=== PATIENT | male | born 1955 | race Caucasian/White ===

== ENCOUNTER 2025-04-09 11:52 | Inpatient (IN) | payer MEDICARE, MEDICAID ==
[2025-04-09] VITALS (9 sets, daily range): BP systolic 81–150; BP diastolic 54–89; PULSE 88–113; RESP 16–28; TEMP 34.2–34.4; O2SAT 0–99
[~2025-04-09] VITALS: Ht 177.8 cm; Wt 73.0 kg
[2025-04-09] MEDS: SODIUM CHLORIDE 0.9% 1,000 ML IV ONE ×2 (12:21→12:51)
[2025-04-09] MEDS ORDERED: ACETAMINOPHEN 650MG SUPP PR PRN ×2 (12:30→13:45)
[2025-04-09] MEDS ORDERED: ACETAMINOPHEN 650MG/20.3ML UDC NG PRN ×2 (12:30→13:45)
[2025-04-09] MEDS: NOREPINEPHRINE 8MG/250ML PMX 250 ML IV ONE ×3 (12:51→18:37)
[2025-04-09 13:06] LABS: BG BASE EXCESS -19.3 mmol/L (-2.0-3.0); BG CARBOXYHEMOGLOBIN 4.7 % (0.5-1.5); BG DEOXYHEMOGLOBIN 0.7 % (0.0-5.0); BG FRACTION INSPIRED OXYGEN 60; BG HCO3 ACT 17.8 mmol/L (21.0-28.0); BG METHEMOGLOBIN 0.2 % (0.5-1.5); BG OXYGEN SATURATION 99.3 % (94.0-98.0); BG OXYHEMOGLOBIN 94.4 % (94.0-98.0); BG PCO2 132.0 mmHg (35.0-48.0); BG PEEP (cmH2O) 5.0 cmH2O; BG PH 6.747 (7.350-7.450); BG PO2 329.9 mmHg (83.0-108.0); BG SAMPLE SITE RIGHT RADIAL; BG TIDAL VOLUME(mL) 400.0 mL; BG TOTAL HEMOGLOBIN 11.9 g/dL (13.5-17.5); BG VENT MODE VENT - AC; BG VENT RATE 16.0 set
[2025-04-09 13:29] LABS: HEMATOCRIT. 38.5 % (42.0-52.0); HEMOGLOBIN. 11.5 g/dL (14.0-18.0); MEAN PLATELET VOLUME 11.0 fl (7.4-10.4); PLATELET 188 x1000/uL (130-400); RED BLOOD CELL COUNT 4.12 mill/uL (4.7-6.1); RED CELL DISTRIBUTION WIDTH 17.0 % (11.6-14.6)
[2025-04-09] MEDS ORDERED: ONDANSETRON HCL 4MG/2ML INJ IV PRN (13:45)
[2025-04-09] MEDS ORDERED: ACETAMINOPHEN 325MG TABLET PO PRN (13:45)
[2025-04-09] MEDS ORDERED: HYDRALAZINE 20MG/ML VIAL IV PRN (13:45)
[2025-04-09] MEDS ORDERED: IPRATROPIUM/ALBUTEROL 0.5-3(2.5)MG/3ML NEB HHN PRN (13:45)
[2025-04-09] MEDS ORDERED: DEXTROSE 50% WATER 50ML SYRINGE IV PRN (13:45)
[2025-04-09 13:46] LABS: CREATININE 1.4 mg/dL (0.6-1.3); UREA NITROGEN BLOOD 20 mg/dL (9-23)
[2025-04-09 13:47] LABS: TROPONIN I HIGH SENSITIVITY 43 ng/L (3.0-53)
[2025-04-09 13:48] LABS: ASPARTATE AMINOTRANSFERASE 513 IU/L (<34); BILIRUBIN DIRECT < 0.1 mg/dL (<=3.0); BILIRUBIN TOTAL < 0.2 mg/dL (0.1-1.0); PROTEIN TOTAL 5.6 g/dL (6.0-8.3)
[2025-04-09] MEDS: BLOOD SUGAR DIAGNOSTIC STRIP TEST SCH (13:49)
[2025-04-09 13:57] LABS: CLARITY URINE CLEAR (CLEAR); COLOR URINE YELLOW (YELLOW); GLUCOSE URINE TRACE (NEGATIVE); KETONES URINE NEGATIVE (NEGATIVE); LEUKOCYTE ESTERASE URINE NEGATIVE (NEGATIVE); NITRITE URINE NEGATIVE (NEGATIVE); OCCULT BLOOD URINE NEGATIVE (NEGATIVE); PH URINE 5.5 (4.5-8.0); PROTEIN URINE 1+ (NEGATIVE); SPECIFIC GRAVITY URINE 1.022 (1.005-1.030); UROBILINOGEN URINE 1.0 E.U./dL (0.2-1.0)
[2025-04-09] MEDS: SODIUM CHLORIDE 0.45% 1,000 ML IV SCH (14:02)
[2025-04-09] MEDS: SODIUM ZIRCONIUM CYCLOSILICATE 10GM/PACKET PO NR (14:02)
[2025-04-09] MEDS: PANTOPRAZOLE SODIUM 40 MG/VIAL IV SCH (14:02)
[2025-04-09 14:17] LABS: RBC URINE 0-2 /hpf (0-2); WBC URINE 0-2 /hpf (0-2)
[2025-04-09 14:18] LABS: BACTERIA URINE NONE SEEN; SQUAMOUS EPITHELIAL CELL URINE FEW /lpf (RARE/1+)
[2025-04-09 14:22] LABS: *AMPHETAMINES SCREEN URINE PRESUMPTIVE POSITIVE (NEGATIVE); *BARBITURATES SCREEN URINE NEGATIVE (NEGATIVE); *BENZODIAZEPINES SCREEN URINE NEGATIVE (NEGATIVE); *COCAINE SCREEN URINE NEGATIVE (NEGATIVE); CANNABINOID URINE SCREEN NEGATIVE (NEGATIVE); ECSTASY MDMA SCREEN URINE CONF.TEST INDICATED (NEGATIVE); METHADONE URINE SCREEN NEGATIVE (NEGATIVE); OPIATES URINE SCREEN PRESUMPTIVE POSITIVE (NEGATIVE); PHENCYCLIDINE URINE SCREEN NEGATIVE (NEGATIVE)
[2025-04-09] MEDS: SODIUM CHLORIDE 0.9% 500 ML IV ONE (14:51)
[2025-04-09] MEDS: PIPERACILLIN/TAZO 3.375G/50ML 50 ML IV SCH (15:04)
[2025-04-09 15:09] LABS: HEPATITIS A AB IGM NEGATIVE (Negative)
[2025-04-09 15:10] LABS: HEPATITIS B CORE AB IGM NEGATIVE (Negative); HEPATITIS C AB NON REACTIVE (Neg) (Negative)
[2025-04-09 15:16] LABS: CREATINE KINASE MB FRACTION 6.2 ng/mL (0.5-3.6)
[2025-04-09 15:23] LABS: BG BASE EXCESS -15.1 mmol/L (-2.0-3.0); BG CARBOXYHEMOGLOBIN 4.3 % (0.5-1.5); BG DEOXYHEMOGLOBIN 12.4 % (0.0-5.0); BG FRACTION INSPIRED OXYGEN 60; BG HCO3 ACT 18.1 mmol/L (21.0-28.0); BG METHEMOGLOBIN 0.3 % (0.5-1.5); BG OXYGEN SATURATION 87.0 % (94.0-98.0); BG OXYHEMOGLOBIN 83.0 % (94.0-98.0); BG PCO2 82.5 mmHg (35.0-48.0); BG PEEP (cmH2O) 5.0 cmH2O; BG PH 6.960 (7.350-7.450); BG PO2 72.7 mmHg (83.0-108.0); BG SAMPLE SITE LEFT RADIAL; BG TIDAL VOLUME(mL) 400.0 mL; BG TOTAL HEMOGLOBIN 13.8 g/dL (13.5-17.5); BG TOTAL RESPIRATORY RATE 22 b/min; BG VENT MODE VENT - AC; BG VENT RATE 22.0 set
[2025-04-09 15:27] LABS: INR 1.3
[2025-04-09 15:41] LABS: PHOSPHORUS 10.9 mg/dL (2.5-4.9)
[2025-04-09 15:43] LABS: TROPONIN I HIGH SENSITIVITY 326 ng/L (3.0-53)
[2025-04-09] MEDS ORDERED: TRANEXAMIC ACID 1,000 MG in SODIUM CHLORIDE 0.9% 100 ML IV ONE (15:45)
[2025-04-09 15:55] LABS: CREATININE 1.5 mg/dL (0.6-1.3); UREA NITROGEN BLOOD 20.0 mg/dL (9-23)
[2025-04-09] MEDS: VANCOMYCIN 1.75GM PMX (XELLIA) 350 ML IV SCH (16:00)
[2025-04-09] MEDS: SODIUM BICARBONATE 8.4% 50MEQ/50ML SYR IV SCH (16:00)
[2025-04-09] MEDS: TRANEXAMIC ACID 1000MG PREMIX 100 ML IV SCH (16:09)
[2025-04-09] MEDS: CALCIUM CHLORIDE 1GM/10ML SYR IV SCH (16:27)
[2025-04-09] MEDS: INSULIN REGULAR (HUMULIN R) 1000UNITS/10ML VIAL IV SCH (16:32)
[2025-04-09] MEDS: DEXTROSE 50% WATER 50ML SYRINGE IV SCH (16:32)
[2025-04-09] MEDS: SODIUM BICARBONATE 150 MEQ in DEXTROSE 5% WATER 850 ML IV SCH (16:51)
[2025-04-09 17:25] LABS: EOSINOPHILS % MANUAL 3.0 % (0.0-5.0); LYMPHOCYTES % MANUAL 37.0 % (20.0-50.0); MONOCYTES % MANUAL 8.0 % (2.0-8.0); NEUTROPHILS % MANUAL 52.0 % (45.0-75.0); NUCLEATED RED BLOOD CELLS 1 /100 WBC; PLATELET ESTIMATE NORMAL
[2025-04-09] MEDS: ALBUTEROL (0.5%) 2.5MG/0.5ML NEB HHN SCH (17:52)
[2025-04-09] MEDS: NOREPINEPHRINE 8MG/250ML PMX 250 ML IV PRN (18:37)
[2025-04-09 18:50] LABS: BG BASE EXCESS -12.9 mmol/L (-2.0-3.0); BG CARBOXYHEMOGLOBIN 1.5 % (0.5-1.5); BG DEOXYHEMOGLOBIN 12.9 % (0.0-5.0); BG FRACTION INSPIRED OXYGEN 60; BG HCO3 ACT 16.6 mmol/L (21.0-28.0); BG METHEMOGLOBIN 0.3 % (0.5-1.5); BG OXYGEN SATURATION 86.9 % (94.0-98.0); BG OXYHEMOGLOBIN 85.3 % (94.0-98.0); BG PCO2 54.7 mmHg (35.0-48.0); BG PEEP (cmH2O) 5.0 cmH2O; BG PH 7.101 (7.350-7.450); BG PO2 63.6 mmHg (83.0-108.0); BG SAMPLE SITE LEFT RADIAL; BG TIDAL VOLUME(mL) 450.0 mL; BG TOTAL HEMOGLOBIN 11.5 g/dL (13.5-17.5); BG VENT MODE VENT - AC; BG VENT RATE 26.0 set
[2025-04-09 19:00] LABS: CREATINE KINASE MB FRACTION 10.7 ng/mL (0.5-3.6)
[2025-04-09 19:04] LABS: TROPONIN I HIGH SENSITIVITY 847 ng/L (3.0-53)
[2025-04-09 19:06] LABS: FOLIC ACID (FOLATE) SERUM > 20.00 ng/mL (>5.38); VITAMIN B12 SERUM 959 pg/mL (211-911)
[2025-04-09 22:17] LABS: CREATINE KINASE MB FRACTION 21.7 ng/mL (0.5-3.6)
[2025-04-09 22:24] LABS: TROPONIN I HIGH SENSITIVITY 2131 ng/L (3.0-53)
[2025-04-09] MEDS: CALCIUM CHLORIDE 1GM/10ML SYR IV NR (23:15)
[2025-04-09] MEDS: DEXTROSE 50% WATER 50ML SYRINGE IV NR (23:15)
[2025-04-09] MEDS: INSULIN REGULAR (HUMULIN R) 1000UNITS/10ML VIAL IV NR (23:15)
[2025-04-09] MEDS: SODIUM CHLORIDE 0.9% 1,000 ML IV SCH (23:18)
[2025-04-09] MEDS: PHENYLEPHRINE 50MG/250ML PMX 250 ML IV PRN (23:30)
[2025-04-10] VITALS (31 sets, daily range): BP systolic 44–111; BP diastolic 17–79; PULSE 83–102; RESP 26–30; TEMP 33.9–34.4; O2SAT 86–96
[2025-04-10] MEDS: SODIUM BICARBONATE 150 MEQ in DEXTROSE 5% WATER 850 ML IV SCH (00:37)
[2025-04-10] MEDS: VASOPRESSIN 20 UNIT in SODIUM CHLORIDE 0.9% 99 ML IV PRN (01:09)
[2025-04-10 01:18] LABS: BG BASE EXCESS -12.6 mmol/L (-2.0-3.0); BG CARBOXYHEMOGLOBIN 1.5 % (0.5-1.5); BG DEOXYHEMOGLOBIN 6.5 % (0.0-5.0); BG FRACTION INSPIRED OXYGEN 100; BG HCO3 ACT 18.7 mmol/L (21.0-28.0); BG METHEMOGLOBIN 0.3 % (0.5-1.5); BG OXYGEN SATURATION 93.4 % (94.0-98.0); BG OXYHEMOGLOBIN 91.7 % (94.0-98.0); BG PCO2 76.0 mmHg (35.0-48.0); BG PEEP (cmH2O) 5.0 cmH2O; BG PH 7.009 (7.350-7.450); BG PO2 88.3 mmHg (83.0-108.0); BG SAMPLE SITE LEFT RADIAL; BG TIDAL VOLUME(mL) 400.0 mL; BG TOTAL HEMOGLOBIN 9.9 g/dL (13.5-17.5); BG VENT MODE VENT - AC PRVC; BG VENT RATE 26.0 set
[2025-04-10 01:24] LABS: CREATINE KINASE MB FRACTION 23.0 ng/mL (0.5-3.6)
[2025-04-10] MEDS: EPINEPHRINE 10 MG in SODIUM CHLORIDE 0.9% 240 ML IV PRN (01:25)
[2025-04-10 01:47] LABS: TROPONIN I HIGH SENSITIVITY 3026 ng/L (3.0-53)
[2025-04-10 02:19] LABS: HEMATOCRIT. 30.6 % (42.0-52.0); HEMOGLOBIN. 9.1 g/dL (14.0-18.0); MEAN PLATELET VOLUME 8.4 fl (7.4-10.4); PLATELET 188 x1000/uL (130-400); RED BLOOD CELL COUNT 3.29 mill/uL (4.7-6.1); RED CELL DISTRIBUTION WIDTH 17.0 % (11.6-14.6)
[2025-04-10 02:46] LABS: BAND% 4.0 % (1.0-6.0); LYMPHOCYTES % MANUAL 9.0 % (20.0-50.0); METAMYELOCYTES % 1.0 % (0-0); MONOCYTES % MANUAL 3.0 % (2.0-8.0); MYELOCYTES % 1.0 % (0-0); NEUTROPHILS % MANUAL 82.0 % (45.0-75.0); PLATELET ESTIMATE NORMAL
[2025-04-10] MEDS: PHENYLEPHRINE 100 MG in DEXT 5% WATER 240 ML IV PRN (04:03)
[2025-04-10] MEDS: NOREPINEPHRINE 32 MG in DEXT 5% WATER 218 ML IV PRN (04:04)
[2025-04-10 04:07] LABS: BG BASE EXCESS -14.7 mmol/L (-2.0-3.0); BG CARBOXYHEMOGLOBIN 1.8 % (0.5-1.5); BG DEOXYHEMOGLOBIN 8.4 % (0.0-5.0); BG FRACTION INSPIRED OXYGEN 100; BG HCO3 ACT 15.6 mmol/L (21.0-28.0); BG METHEMOGLOBIN 0.3 % (0.5-1.5); BG OXYGEN SATURATION 91.4 % (94.0-98.0); BG OXYHEMOGLOBIN 89.5 % (94.0-98.0); BG PCO2 61.0 mmHg (35.0-48.0); BG PEEP (cmH2O) 5.0 cmH2O; BG PH 7.027 (7.350-7.450); BG PO2 76.1 mmHg (83.0-108.0); BG SAMPLE SITE LEFT RADIAL; BG TIDAL VOLUME(mL) 425.0 mL; BG TOTAL HEMOGLOBIN 9.1 g/dL (13.5-17.5); BG VENT MODE VENT - AC PRVC; BG VENT RATE 30.0 set
[2025-04-10] MEDS: DOPAMINE 400MG/250ML PREMIX 250 ML IV PRN (05:28)
[2025-04-10 05:43] LABS: HEMATOCRIT. 28.4 % (42.0-52.0); HEMOGLOBIN. 8.4 g/dL (14.0-18.0); MEAN PLATELET VOLUME 8.7 fl (7.4-10.4); PLATELET 177 x1000/uL (130-400); RED BLOOD CELL COUNT 3.01 mill/uL (4.7-6.1); RED CELL DISTRIBUTION WIDTH 16.8 % (11.6-14.6)
[2025-04-10] MEDS ORDERED: SODIUM BICARBONATE 8.4% 50MEQ/50ML SYR IV NR (06:00)
[2025-04-10] MEDS ORDERED: EPINEPHRINE 0.1MG/ML (1:10,000) 10ML SYR IV NR (06:15)
[2025-04-10 06:37] LABS: CREATINE KINASE MB FRACTION 28.0 ng/mL (0.5-3.6); TRIGLYCERIDE 80 mg/dL (0-150); UREA NITROGEN BLOOD 26 mg/dL (9-23)
[2025-04-10 06:38] LABS: LDL CHOLESTEROL 61 mg/dL (5-100)
[2025-04-10 06:39] LABS: PHOSPHORUS 6.1 mg/dL (2.5-4.9)
[2025-04-10 06:55] LABS: CREATININE 2.3 mg/dL (0.6-1.3); TROPONIN I HIGH SENSITIVITY 3745 ng/L (3.0-53)
[2025-04-10] MEDS ORDERED: VANCOMYCIN 1.25GM/250ML IV SCH (15:00)
[2025-04-10 16:02] LABS: LYMPHOCYTES % MANUAL 5.0 % (20.0-50.0); MONOCYTES % MANUAL 4.0 % (2.0-8.0); NEUTROPHILS % MANUAL 91.0 % (45.0-75.0); PLATELET ESTIMATE NORMAL
== END 2025-04-10 10:09 | DRG 208 ==
LOC: ER 11:52 → EDBEDREQTM 12:36 → EDBEDREQ 12:36 → ENRESERV 22:21 → MICUSO 22:46
PROVIDERS: ADMIT Internal Medicine; ATTEND Internal Medicine
PROC: 5A1935Z Respiratory Ventilation, Less than 24 Consecutive Hours (ICD-10-PCS; principal; 2025-04-09)
PROC: 0BH17EZ Insertion of Endotracheal Airway into Trachea, Via Natural or Artificial Opening (ICD-10-PCS; 2025-04-09)
PROC: 5A0935A Assistance with Respiratory Ventilation, Less than 24 Consecutive Hours, High Flow/Velocity Cannula (ICD-10-PCS; 2025-04-09)
PROC: 5A12012 Performance of Cardiac Output, Single, Manual (ICD-10-PCS; 2025-04-10)
PROC: 06HY33Z Insertion of Infusion Device into Lower Vein, Percutaneous Approach (ICD-10-PCS; 2025-04-10)
PROC: B54BZZA Ultrasonography of Right Lower Extremity Veins, Guidance (ICD-10-PCS; 2025-04-10)
DX: J96.02 Acute respiratory failure with hypercapnia (principal); G93.41 Metabolic encephalopathy; I21.A1 Myocardial infarction type 2; I46.9 Cardiac arrest, cause unspecified; E87.4 Mixed disorder of acid-base balance; N17.9 Acute kidney failure, unspecified; N18.9 Chronic kidney disease, unspecified; F19.10 Other psychoactive substance abuse, uncomplicated; D64.9 Anemia, unspecified; E87.0 Hyperosmolality and hypernatremia; E87.5 Hyperkalemia; D72.829 Elevated white blood cell count, unspecified; I48.91 Unspecified atrial fibrillation; R04.0 Epistaxis; R73.9 Hyperglycemia, unspecified; R74.01 Elevation of levels of liver transaminase levels; F17.290 Nicotine dependence, other tobacco product, uncomplicated; Z79.899 Other long term (current) drug therapy
CPT/HCPCS: 31500; 36415; 36600; 71045; 80048; 80061; 80076; 80305; 80320; 81003; 82140; 82375; 82550; 82553; 82607; 82746; 82805; 82962; 83036; 83540; 83550; 83605; 83735; 83880; 84100; 84145; 84484; 85014; 85018; 85025; 86705; 86709; 86850; 86900; 86920; 87340; 92950; 93005; 93970; 94002; 94070; 94640; 96365; 96375; 99291; A4606; J1265; J1815; J2371; J2470; J2543; J3373; J3490; J7030; J7050; J7070; G0480